=== PATIENT | male | born 1960 | race Caucasian/White ===

== ENCOUNTER 2023-08-02 23:38 | Inpatient (IN) | payer OTHER ==
[~2023-08-02] VITALS: Ht 172.7 cm; Wt 84.8 kg
[2023-08-03] VITALS (49 sets, daily range): BP systolic 36–121; BP diastolic 19–105
[2023-08-03 00:25] LABS: BASOPHILS ABSOLUTE AUTO 0.02 K/mm3 (0.00-0.23); BASOPHILS PERCENT AUTO 0 % (0-2); EOSINOPHILS ABSOLUTE AUTO 0.06 K/mm3 (0.00-0.68); EOSINOPHILS PERCENT AUTO 1 % (0-6); Hematocrit 33.7 % (37.0-53.0); Hemoglobin 10.7 g/dL (13.5-17.5); IMMATURE GRAN ABSOLUTE AUTO 0.05 K/mm3 (0.00-0.10); IMMATURE GRAN PERCENT AUTO 1 % (0-1); LYMPHOCYTES ABSOLUTE AUTO 1.25 K/mm3 (0.84-5.20); LYMPHOCYTES PERCENT AUTO 12 % (21-46); MONOCYTES PERCENT AUTO 15 % (4-13); Mean Corpuscular HGB 26.6 pg (26.0-34.0); Mean Corpuscular HGB Conc 31.8 g/dL (31.5-36.5); Mean Corpuscular Volume 84 fL (80-100); Mean Platelet Volume 11.1 fL (9.1-12.4); NEUTROPHILS ABSOLUTE AUTO 7.17 K/mm3 (1.96-9.15); NEUTROPHILS PERCENT AUTO 71 % (41-73); Platelet Count 114 K/mm3 (150-400); RDW Coefficient Variation 20.3 % (11.7-14.2); RDW Standard Deviation 61.1 fL (35.1-46.3); Red Blood Cell Count 4.03 M/mm3 (4.30-5.90); White Blood Cell Count 10.05 K/mm3 (4.00-11.30)
[2023-08-03 00:52] LABS: Ethanol (Alcohol), Blood, Med <3 mg/dL
[2023-08-03 01:13] LABS: Alanine Aminotransfer (ALT/SGP 22 U/L (12-78); Albumin, Blood 3.7 g/dL (3.4-5.0); Albumin/Globulin Ratio 0.9 (0.8-1.8); Alk Phos 85 U/L (50-136); Anion Gap 5 mmol/L (6-16); Aspartate Aminotrans (AST/SGOT 39 U/L (12-37); Bilirubin, Total 0.7 mg/dL (0.1-1.0); Blood Urea Nitrogen 58 mg/dL (8-24); Bun/Creatinine Ratio 21.5 (12.0-20.0); CO2, Blood 27 mmol/L (21-32); Calcium, Blood 8.9 mg/dL (8.5-10.1); Chloride, Blood 95 mmol/L (98-108); Globulin, Blood 4.3 g/dL (2.2-4.0); Glomerular Filtration Rate 26 (60-); Glucose, Blood 102 mg/dL (70-99); Potassium, Blood 6.1 mmol/L (3.5-5.5); Sodium, Blood 127 mmol/L (136-145)
[2023-08-03 01:15] LABS: Acetaminophen, Random <2.0 ug/mL (10.0-30.0)
[2023-08-03 02:04] LABS: Source, Urine Clean Catch
[2023-08-03 02:13] LABS: Bilirubin, Urine Neg (Neg); Blood, Urine Neg (Neg); Glucose Qualitative, Urine Neg (Neg); Ketones, Urine Neg (Neg); Leukocyte Esterase, Urine Neg (Neg); Nitrite, Urine Neg (Neg); Protein, Urine Neg (Neg); Specific Gravity, Urine 1.015 (1.003-1.022); Urobilinogen, Urine NORM (Normal)
[2023-08-03 02:20] LABS: Appearance, Urine Clear (Clear); Color, Urine Yellow (P-Yellow)
[2023-08-03 02:30] LABS: Bicarbonate Venous 23.7 mmol/L (24.0-30.0); PCO2 Venous 42.9 mmHg (38-42); pH Blood Venous 7.37 (7.34-7.37)
[2023-08-03 02:31] LABS: Base Excess Venous -0.9 mmol/L
[2023-08-03 02:46] LABS: Influenza A, PCR NEGATIVE (NEGATIVE); Influenza B, PCR NEGATIVE (NEGATIVE); Resp Syncytial Virus, PCR NEGATIVE (NEGATIVE); SARS-Cov-2 (COVID-19) PCR, MMC NEGATIVE (NEGATIVE); U Amphetamine Screen Not Detected; U Barbituate Screen Not Detected; U Benzodiazapine Screen DETECTED; U Buprenorphine Screen Not Detected; U Cannabinoids Screen Not Detected; U Cocaine Screen Not Detected; U Methadone Screen Not Detected; U Methamphetamine Screen Not Detected; U Opiates Screen DETECTED; U Phencyclidine Screen Not Detected
[2023-08-03 02:47] LABS: U Oxycodone Screen Not Detected; U Propoxyphene Screen Not Detected
[2023-08-03 03:05] LABS: International Normalized Ratio 1.09; Prothrombin Time Results 11.4 Sec (9.7-11.5)
[2023-08-03 03:37] LABS: Bun/Creatinine Ratio 20.5 (12.0-20.0); Calcium, Blood 8.4 mg/dL (8.5-10.1); Creatinine, Blood 2.97 mg/dL (0.60-1.20); Potassium, Blood 4.9 mmol/L (3.5-5.5)
--- NOTE | 2023-08-03 09:46 | NUR ---
PROVIDER NOTIFICATION: Dr Faustin notified of patient and current hypotension. See new orders.
--- NOTE | 2023-08-03 11:27 | NUR ---
Received updated report from Sherri Mnuiz: Staff at [facility] reports the pt was started there on hospice services on June 08 after a stay at [facility] which lasted from May 29 - June 08. The pt was receiving hospice services for "alcoholic cardiomyopathy" with an EF of 15-20%. Staff there reports pt had been "declining for the past week" and they subsequently notified hospice of the change. They report yesterday the pt "became fearful of dying" and "made the decision to come off of hospice" yesterday, but that his mentation was altered at that time. Staff provided contact information for brotherJovanni, phone number [phone], lives in [place].
--- NOTE | 2023-08-03 12:30 | NUR ---
PROVIDER UPDATE: Dr Faustin updated on pt condition, HR, and BP. New order for albumen
--- NOTE | 2023-08-03 12:39 | NUR ---
Pt resting in bed with his eyes closed and does not respond to verbal stimuli. Reviewed chart and plan of care with care team. Pt was on hospice services and revoked hospice. Called and spoke with Pt's brothers Jovanni and Romel. Provided update and discussed goals of care. Brothers report being hesitant regarding making decisions for Pt. They report Pt has been in similar situations in the past unable to make decisions for him self and when he clears Pt is wanting everything done. Brothers do report being in agreement to keep Pt's code status as medications only to assist with B/P and cardiac. Palliative Care will remain available.
--- NOTE | 2023-08-03 13:47 | NUR ---
PROVIDER UPDATE: Dr Faustin at bedside. Pt no longer opening his eyes with stimulation. No new orders.
[2023-08-03 18:40] LABS: Source, Urine Foley catheter
--- NOTE | 2023-08-03 18:50 | NUR ---
SHIFT SUMMARY: Pt admitted from ED this morning. Rectal tube placed for lactulose. Shaver placed for i/o's, however he has not produced any urine. Dobhoff placed for midodrine administration. NS bolus and albumin given. Midodrine ineffective, therefore PICC line placed on right and levophed started to maintain map > 60. Palliative and care management involved in case. Dr Faustin and Dr Slater consulted today.
--- NOTE | 2023-08-03 18:52 | NUR ---
IGNITION SOURCE: Pt not educated on ignition risk due to mental status.
[2023-08-03 19:14] LABS: Appearance, Urine Turbid (Clear); Bilirubin, Urine Neg (Neg); Blood, Urine 5+ (Neg); Color, Urine Yellow (P-Yellow); Glucose Qualitative, Urine Neg (Neg); Ketones, Urine Neg (Neg); Leukocyte Esterase, Urine 3+ (Neg); Nitrite, Urine Neg (Neg); Protein, Urine 4+ (Neg); Specific Gravity, Urine 1.015 (1.003-1.022); Urobilinogen, Urine NORM (Normal); pH, Urine 6.5 (5.0-8.0)
--- NOTE | 2023-08-03 20:00 | NUR ---
ASSUMED CARE OF PT AT 1915. REPORT RECEIVED AT BEDSIDE. PT PRESENTS IN BED. SLEEPING. WILL OPEN HIS EYES WHEN HE IS TURNED. BLOOD PRESSURES REMAIN LOW. LEVOPHED AT 2 MCG'S/MIN INCREASED TO 4 MCG'S. PENDING RESULTS. WILL REVIEW CHART AND PLAN OF CARE FOR THIS PT.
[2023-08-03 20:04] LABS: Amorphous Light (0-Heavy); Bacteria Many /hpf; Red Blood Cells, Urine 50-100 /hpf (0-2); Renal Epithelial Rare /hpf (0-Rare); Squamous Epithelial Cells Rare /hpf (Few); Transitional Epithelial Cells Rare /hpf (0-Rare)
[2023-08-03 20:05] LABS: Calcium Oxalate Crystals Mod /hpf
--- NOTE | 2023-08-03 23:48 | NUR ---
HAVE PROGRESSIVELY INCREASED LEVOPHED DRIP TO 10 MCG'S/MIN. SPOKE WITH DR WARREN PER PHONE. UPDATES GIVEN. ORDERS RECEIVED. PT'S BLOOD PRESSURES HAVE IMPROVED SOME WITH LEVOPHED INCREASE. ALBUMIN ADMINISTERED. ALL INTERVENTIONS DONE WITH CONSIDERATION OF POSSIBLE ISSUES WITH OBTAINING RELIABLE BLOOD PRESSURES. WILL CONTINUE TO MONITOR.
[2023-08-04] VITALS (65 sets, daily range): BP systolic 61–195; BP diastolic 27–150
[2023-08-04 05:33] LABS: Hematocrit 29.4 % (37.0-53.0); Mean Corpuscular HGB 26.1 pg (26.0-34.0); Mean Corpuscular HGB Conc 30.6 g/dL (31.5-36.5); Mean Corpuscular Volume 85 fL (80-100); Mean Platelet Volume 11.5 fL (9.1-12.4); Platelet Count 183 K/mm3 (150-400); RDW Coefficient Variation 20.7 % (11.7-14.2); RDW Standard Deviation 63.7 fL (35.1-46.3); Red Blood Cell Count 3.45 M/mm3 (4.30-5.90); White Blood Cell Count 17.42 K/mm3 (4.00-11.30)
--- NOTE | 2023-08-04 05:52 | NUR ---
LEVOPHED CURRENTLY AT 4 MCG'S/KG. DOES OPEN EYES DURING TURNS. NON-VERBAL. DIGNISHIELD PATENT. DRAINS LIQUID BROWN STOOL. DID CONTACT PT'S GROUP HOME AND HAVE RECEIVED MEDICAL RECORDS AND A LIST OF MEDICATIONS THAT HE HAS BEEN TAKING. OLIGURIA NOTED. HAVE MEDICATED PT ONCE WITH 4 MG MORPHINE SECONDARY TO PT BECOMING MORE RESTLESS AND HEART RATES ELEVATING INTO 140'S TO 150'S. BASED UPON MEDICAL RECORDS RECEIVE WHEREAS PT RECEIVES MULTIPLE DOSES OF MORPHINE AT GROUP HOME. WILL CONTINUE TO MONITOR PT, AND WILL REPORT OFF TO ONCOMING RN.
[2023-08-04 05:53] LABS: Albumin, Blood 3.4 g/dL (3.4-5.0); Bilirubin, Total 0.7 mg/dL (0.1-1.0); Calcium, Blood 7.6 mg/dL (8.5-10.1); Creatinine, Blood 5.52 mg/dL (0.60-1.20); Globulin, Blood 3.3 g/dL (2.2-4.0); Magnesium, Blood 1.9 mg/dL (1.6-2.4); Potassium, Blood 5.4 mmol/L (3.5-5.5); Total Protein, Blood 6.7 g/dL (6.4-8.2)
[2023-08-04 05:57] LABS: BAND PERCENT MAN 13 % (0-8); BASOPHILS PERCENT MAN 0 % (0-2); EOSINOPHILS PERCENT MAN 0 % (0-6); LYMPHOCYTES % ATYPICAL MANUAL 1 % (0-0); LYMPHOCYTES ABSOLUTE MAN 1.56 K/mm3 (0.84-5.20); LYMPHOCYTES PERCENT MAN 8 % (21-46); METAMYELOCYTE ABSOLUTE MAN 0.17 K/mm3 (0.00-0.00); METAMYELOCYTE PERCENT MAN 1 % (0-0); MONOCYTES ABSOLUTE MAN 1.39 K/mm3 (0.16-1.47); MONOCYTES PERCENT MAN 8 % (4-13); NEUTROPHILS ABSOLUTE MAN 14.28 K/mm3 (1.96-9.15); SEG NEUTROPHILS PERCENT MAN 69 % (41-73); TOTAL CELLS COUNTED 100
[2023-08-04] MEDS ORDERED: DIGOX125 MC1 PO (06:08)
[2023-08-04] MEDS ORDERED: EUTHYROX100 MC1 PO (06:10)
[2023-08-04] MEDS ORDERED: NEURONTIN300 MG PO (06:11)
[2023-08-04] MEDS ORDERED: ONDA4ODT MM (06:11)
[2023-08-04] MEDS ORDERED: ELIQUIS5 M3 PO (06:12)
[2023-08-04] MEDS ORDERED: Naltrexone HCl50 MG PO (06:13)
[2023-08-04] MEDS ORDERED: METFORMIN HCL500 M3 PO (06:14)
[2023-08-04] MEDS ORDERED: SOAANZ20 M3 PO (06:15)
[2023-08-04] MEDS ORDERED: B-1100 M2 PO (06:15)
[2023-08-04] MEDS ORDERED: TAMS.4ER PO (06:16)
[2023-08-04] MEDS ORDERED: FOLI1 PO (06:17)
[2023-08-04] MEDS ORDERED: Lisinopril2.5 MG PO (06:17)
[2023-08-04] MEDS ORDERED: METO50ER PO (06:18)
[2023-08-04] MEDS ORDERED: SPIR25 PO (06:18)
[2023-08-04] MEDS ORDERED: MORP30ER PO (06:19)
[2023-08-04] MEDS ORDERED: MORP20L PO (06:19)
[2023-08-04] MEDS ORDERED: MELA3 PO (06:20)
[2023-08-04] MEDS ORDERED: HYDPAM50 PO (06:21)
[2023-08-04] MEDS ORDERED: Ativan1 MG PO (06:21)
[2023-08-04] MEDS ORDERED: LACT10SY PO (06:22)
[2023-08-04] MEDS ORDERED: ACAMPROSATE CA333 MG PO (06:28)
--- NOTE | 2023-08-04 07:00 | NUR ---
ASSUME CARE: I have assumed care of this patient.
--- NOTE | 2023-08-04 09:00 | NUR ---
PROVIDER UPDATE: Dr Faustin notified of pt's tachycardia and episode of emesis.
--- NOTE | 2023-08-04 10:17 | NUR ---
PROVIDER UPDATE: Pt becoming more restless in bed and calling out. RN requested opiate medications
--- NOTE | 2023-08-04 10:51 | NUR ---
PROVIDER UPDATE: Pt diaphoretic and restless. Tachycardia continues with new elevated BP's. RN discussed concerns for withdrawal symptoms as pt takes a home of of lorazepam daily. There is also concern about substance abuse from [facility] staff.
--- NOTE | 2023-08-04 17:41 | NUR ---
SHIFT SUMMARY: Pt with large episode of emesis this morning after AM meds given. Dobhoff was replaced with salem sump and placed to LIS. Bumex given with minimal UOP. Levophed on SB. NS reduced to TKO. Rectal tube and mejia patent and draining to gravity.
--- NOTE | 2023-08-04 20:00 | NUR ---
ASSUMED CARE OF PT AT 1900. REPORT RECEIVED AT BEDSIDE. PT PRESENTS IN BED. MILDLY RESTLESS. NGT PUTTING OUT DARK BROWN LIQUID. DIGNISHIELD IN PLACE. DRAINS LIQUID BROWN. PT HAS JUST RECEIVED DOSE OF LACTULOSE ENEMA PER DAYSHIFT RN. PT HAS SIMPLE MASK ON WITH O2. MAINTAINS > 90 PERCENT SATURATIONS. WILL REVIEW CHART AND PLAN OF CARE FOR THIS PT.
[2023-08-05] VITALS (29 sets, daily range): BP systolic 42–89; BP diastolic 23–65
--- NOTE | 2023-08-05 03:57 | NUR ---
PT HAS HAD A-FIB WITH RVR THAT RATE 160'S TO 180'S. CALL MADE TO DR WARREN. UPDATE GIVEN. ORDER RECEIVED FOR CARDIZEM DRIP WITH BOLUS. THIS HAS BEEN DONE. HAS HAD BLOOD PRESSURE DROP WITH CARDIZEM, HAVE NEEDED TO INCREASE LEVOPHED TO OFFSET WITH CARDIZEM. PT HAS HAD COPIOUS AMOUNTS OF LIQUID DARK BROWN OUTPUT FROM NGT. PT HAS BEEN MEDICATED WITH MORPHINE FOR S/S PAIN WITH GRIMACING AND MOANING. WILL CONTINUE TO MONITOR.
[2023-08-05 04:22] LABS: Hematocrit 28.6 % (37.0-53.0); Hemoglobin 8.8 g/dL (13.5-17.5); Mean Corpuscular HGB 26.2 pg (26.0-34.0); Mean Corpuscular HGB Conc 30.8 g/dL (31.5-36.5); Mean Corpuscular Volume 85 fL (80-100); Mean Platelet Volume 11.1 fL (9.1-12.4); NRBC ABSOLUTE 0.03 K/mm3 (0.00-0.02); NRBC Auto 0.2 /100 WBC (0.0-0.2); Platelet Count 294 K/mm3 (150-400); RDW Standard Deviation 64.6 fL (35.1-46.3); Red Blood Cell Count 3.36 M/mm3 (4.30-5.90)
[2023-08-05 04:58] LABS: Anion Gap 12 mmol/L (6-16); Blood Urea Nitrogen 100 mg/dL (8-24); Bun/Creatinine Ratio 12.7 (12.0-20.0); CO2, Blood 24 mmol/L (21-32); Calcium, Blood 7.5 mg/dL (8.5-10.1); Chloride, Blood 101 mmol/L (98-108); Creatinine, Blood 7.88 mg/dL (0.60-1.20); Glomerular Filtration Rate 7 (60-); Glucose, Blood 116 mg/dL (70-99); Phosphorus, Blood 9.1 mg/dL (2.5-4.9); Potassium, Blood 5.6 mmol/L (3.5-5.5); Sodium, Blood 137 mmol/L (136-145)
--- NOTE | 2023-08-05 05:21 | NUR ---
PT HAS HAD 1400 ML DARK OUTPUT FROM NGT. PT BECOMING MORE OBTUNDED. HAVE NEEDED TO INCREASE LEVOPHED TO MAINTAIN BLOOD PRESSURE. CALL MADE TO DR WARREN CONCERNING PT'S POOR PROGRESS THRU THE NIGHT. WILL NOT ESCALATE TO ADDITIONAL PRESSORS AT THIS TIME. DID PLACE NASAL TRUMPET TO RIGHT NARE. PT DOES NOT REACT TO THIS. NT SUCTIONING DONE WITH RETURN OF MODERATE AMOUNT OF CREAM COLORED SECRETIONS. PT DOES HAVE FACIAL GRIMACE WITH MOVEMENTS IN BED. WILL ADMINISTER MORPHINE FOR PAIN MANAGEMENT. THIS PLAN OF CARE DISCUSSED WITH DR WARREN WHO IS IN AGREEMENT. WILL CONTINUE TO MONITOR PT, AND WILL REPORT OFF TO ONCOMING RN.
[2023-08-05 05:23] LABS: BAND PERCENT MAN 33 % (0-8); BASOPHILS ABSOLUTE MAN 0.17 K/mm3 (0.00-0.23); BASOPHILS PERCENT MAN 1 % (0-2); EOSINOPHILS PERCENT MAN 0 % (0-6); LYMPHOCYTES % ATYPICAL MANUAL 1 % (0-0); LYMPHOCYTES ABSOLUTE MAN 0.53 K/mm3 (0.84-5.20); LYMPHOCYTES PERCENT MAN 2 % (21-46); METAMYELOCYTE ABSOLUTE MAN 0.35 K/mm3 (0.00-0.00); METAMYELOCYTE PERCENT MAN 2 % (0-0); MONOCYTES ABSOLUTE MAN 1.77 K/mm3 (0.16-1.47); MONOCYTES PERCENT MAN 10 % (4-13); NEUTROPHILS ABSOLUTE MAN 14.86 K/mm3 (1.96-9.15); SEG NEUTROPHILS PERCENT MAN 51 % (41-73); TOTAL CELLS COUNTED 100
--- NOTE | 2023-08-05 06:12 | NUR ---
NOTED PT'S HEART RATE BEGAN TO DROP. HAVE HAD CARDIZEM OFF FOR > 1.5 HOURS. PT HAS AT 0607 THIS AM. MAHESH FONTENOT IN FOR SECOND RN.
== END 2023-08-05 06:07 | DRG 871 ==
LOC: ER 23:38 → ICUE 23:39 → ER 08-03 23:39 → ICUE 08-05 06:07
PROVIDERS: Emergency Medicine; Hospitalist; Internal Medicine Critical Care Medicine; Internal Medicine Pulmonary Disease; ADMIT Student in an Organized Health Care Education/Training Program
DX: A41.9 Sepsis, unspecified organism (principal); J96.91 Respiratory failure, unspecified with hypoxia; J96.92 Respiratory failure, unspecified with hypercapnia; R57.9 Shock, unspecified; N17.9 Acute kidney failure, unspecified; I48.20 Chronic atrial fibrillation, unspecified; E72.20 Disorder of urea cycle metabolism, unspecified; I42.6 Alcoholic cardiomyopathy; R19.7 Diarrhea, unspecified; E11.22 Type 2 diabetes mellitus with diabetic chronic kidney disease; K76.82 Hepatic encephalopathy; K70.30 Alcoholic cirrhosis of liver without ascites; F10.20 Alcohol dependence, uncomplicated; R41.82 Altered mental status, unspecified; E03.9 Hypothyroidism, unspecified; E86.0 Dehydration; I12.9 Hypertensive chronic kidney disease with stage 1 through stage 4 chronic kidney disease, or unspecified chronic kidney disease; N18.30 Chronic kidney disease, stage 3 unspecified; Z88.5 Allergy status to narcotic agent; Z89.512 Acquired absence of left leg below knee; Z89.511 Acquired absence of right leg below knee
CPT/HCPCS: 0241U; 36415; 36569; 51701; 51702; 51798; 70450; 71045; 76770; 80048; 80053; 80069; 81001; 81003; 82140; 82436; 82570; 82803; 82947; 83605; 83735; 84156; 84300; 84484; 85025; 85610; 85730; 87040; 87077; 87086; 87186; 93005; 93010; 93306; 94762; 96361; 96365; 96366; 96374; 96375; 99285-25; A9270; C1751; G0378; G0480; J0696; J1644; J1815; J2060; J2270; J2405; J3411; J7030; J7060; P9047